=== PATIENT | male | born 1970 | race American Indian/Alaskan Native ===

== ENCOUNTER 2022-06-16 22:52 | Emergency (ER) | payer SELFPAY ==
[2022-06-16 23:14] VITALS: BP 147/103
[2022-06-16] MEDS ORDERED: ASPIRIN 325 MG TAB PO ONE (23:15)
--- NOTE | 2022-06-16 23:50 | XRay Report ---
CHEST 2 VIEWS INDICATION / CLINICAL INFORMATION: Acute chest pain for 5-6 hours. COMPARISON: None available. FINDINGS: SUPPORT DEVICES: None. HEART / MEDIASTINUM: No significant abnormality. LUNGS / PLEURA: A calcified granuloma is seen along the left lower lobe. The lungs are otherwise yefri r. No significant pleural effusion. No pneumothorax. ADDITIONAL FINDINGS: No significant additional findings. IMPRESSION: 1. No acute abnormality of the chest. Signer Name: Chepe Guerrero MD Signed: 06/16/2022 11:45 PM Workstation Name: [id number]
[2022-06-17 00:36] LABS: Alanine Aminotransferase 17 units/L (7-56); Albumin 4.5 g/dL (3.9-5); BUN/Creatinine Ratio 9; Blood Urea Nitrogen 10 mg/dL (9-20); Calcium 9.5 mg/dL (8.4-10.2); Hemolysis Index 5
[2022-06-17 00:43] LABS: Basophils % (Auto) 0.1 % (0.0-1.8); Eosinophils # (Auto) 0.1 K/mm3 (0.0-0.4); Eosinophils % (Auto) 0.3 % (0.0-4.3); Hematocrit 45.8 % (35.5-45.6); Hemoglobin 15.6 gm/dl (11.8-15.2); Lymphocytes % (Auto) 11.6 % (13.4-35.0); Mean Corpuscular HGB Conc 34 % (32-34); Mean Corpuscular Volume 92 fl (84-94); Monocytes # (Auto) 0.9 K/mm3 (0.0-0.8); Monocytes % (Auto) 5.3 % (0.0-7.3); Platelet Count 233 K/mm3 (140-440); Red Blood Count 4.98 M/mm3 (3.65-5.03); Red Cell Distribution Width 13.5 % (13.2-15.2)
--- NOTE | 2022-06-17 18:42 | Electrocardiograph Report ---
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
--- NOTE | 2022-06-17 18:43 | Electrocardiograph Report ---
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
== END 2022-06-17 17:27 | disposition left against medical advice (07) ==
LOC: ED 22:52
DX: R07.9 Chest pain, unspecified (principal); Z53.21 Procedure and treatment not carried out due to patient leaving prior to being seen by health care provider
CPT/HCPCS: 36415; 71046; 80053; 84484; 85025; 93005